=== PATIENT | male | born 1945 | race Caucasian/White ===

== ENCOUNTER 2022-04-27 19:55 | Emergency (ER) | payer MEDICARE ==
[2022-04-27] MEDS ORDERED: HYDROmorphone 2 MG/ML Syringe ONE (20:47)
[2022-04-27] MEDS: HYDROmorphone 1 MG/ML Syringe SUBCUT ONE ×2 (21:05→21:27)
[2022-04-27 21:21] VITALS: PULSE 74
[2022-04-27] MEDS ORDERED: Acetaminophen/HYDROcodone 325-5 MG Tab PO PRN (21:32)
[2022-04-28 03:29] VITALS: BP 125/76
== END 2022-04-27 22:00 | disposition home or self-care (01) ==
LOC: KA.ED 19:55
DX: S22.42XA Multiple fractures of ribs, left side, initial encounter for closed fracture (principal); S40.022A Contusion of left upper arm, initial encounter; E66.9 Obesity, unspecified; Z68.41 Body mass index [BMI] 40.0-44.9, adult; Z79.01 Long term (current) use of anticoagulants; Z79.82 Long term (current) use of aspirin; W18.30XA Fall on same level, unspecified, initial encounter; Y92.000 Kitchen of unspecified non-institutional (private) residence as the place of occurrence of the external cause
CPT/HCPCS: 71100-LT; 96372; 99283; 99284; A9270-GY; J1170